=== PATIENT | female | born 1985 | race Caucasian/White ===

== ENCOUNTER 2016-07-17 16:02 | Outpatient (CLI) | payer OTHER ==
[2016-07-17 16:35] VITALS: BMI 36.7
[2016-07-17 17:35] LABS: HEMATOCRIT 32.7 % (37.0-47.0); HEMOGLOBIN 10.9 gm/l (12.0-16.0); MEAN CORPUSCULAR HEMOGLOBIN 27.7 pg (27.0-31.0); MEAN CORPUSCULAR HGB CONC 33.3 g/dl (33.0-37.0); RED CELL DISTRIBUTION WIDTH 12.6 % (11.5-14.5)
[2016-07-17 17:45] LABS: SPECIFIC GRAVITY 1.025 (1.001-1.030); URINE APPEARANCE CLEAR; URINE BILIRUBIN NEGATIVE (NEGATIVE); URINE BLOOD NEGATIVE (NEGATIVE); URINE COLOR AMBER; URINE GLUCOSE (UA) NEGATIVE (NEGATIVE); URINE LEUKOCYTE ESTERASE NEGATIVE (NEGATIVE); URINE NITRITE NEGATIVE (NEGATIVE); URINE PROTEIN TRACE (NEGATIVE); URINE UROBILINOGEN NORMAL (0-1 mg/dl)
[2016-07-17 17:54] LABS: ALB/GLOB RATIO 1.2 (>1.0); ALBUMIN 3.4 gm/dL (3.5-5.7); CALCIUM 8.8 mg/dL (8.6-10.3)
--- NOTE | 2016-07-17 19:55 | PCMOBT ---
OB Triage - Subjective SAMY KOWALSKI is a 31 year old at 34 who presents to L & D triage c/ o right sided abd pain at the level of the umbilicus last night and the night before. Each time it lasted about 1 hour, severe and not relieved by position change. It resolved on its own. No nausea/emesis, no fever/chills. Pt also has been having a burning RUQ pain radiating to RU back for the past few weeks. It is not clear if this related to or triggered by eating. No real pattern. Eval: Prolonged NST reactive, category 1, with no contractions. Abd soft, +BS, no guarding, no rebound. Pt is not having tenderness at all right now. UA normal CBC mild anemia, normal WBC CMP normal, slightly low protein - Physical Exam General: NAD Neurological: Alert, Oriented X4 Respiratory: Clear to Auscultation Cardiac: Regular Rate Abdomen: Soft, Non Tender, Gravid Contractions: Absent - Pelvic Exam External Genitalia: Other (Pelvic exam not indicated.) - Heart Tones Baseline: 140 (category 1) Variability: Moderate Accelerations: Present Decelerations: Non-Present - Assessment/ Plan 31 year old G2 P at 34 here for abd pain last night. Eval today normal and reassuring. Appendicitis and acute cholecystitis ruled out. Pt may have symptomatic gallstones. She will keep appt with Dr Berrios on Mon and discuss further work up if indicated. Return precautions given: including that she should return if she has decreased movement, if she has LOF, vaginal bleeding or contractions such that she thinks she's in labor.
== END 2016-07-17 19:35 | disposition home or self-care (01) ==
LOC: FBCOUT 16:02 → FBC 16:05 → FBCOUT 19:35
PROVIDERS: ATTEND Obstetrics & Gynecology
DX: O26.893 Other specified pregnancy related conditions, third trimester (principal); R10.9 Unspecified abdominal pain; O99.013 Anemia complicating pregnancy, third trimester; Z3A.34 34 weeks gestation of pregnancy
CPT/HCPCS: 82150; 85027; 80053; 81003; 36415; 59025; G0463

== ENCOUNTER 2016-08-13 04:55 | Inpatient (IN) | payer OTHER ==
[2016-08-13 05:19] VITALS: BMI 36.0
[2016-08-13 06:12] LABS: ABSOLUTE NEUTROPHIL COUNT 6.9 K/mm3 (1.8-7.7); BASO % 0.1 % (0.2-1.0); EOS # 0.1 (0.0-0.5); EOS % 0.5 % (0.9-2.9); HEMATOCRIT 32.8 % (37.0-47.0); HEMOGLOBIN 10.5 gm/l (12.0-16.0); IMM NEUT% 0.3 % (0-1); LYMPH # 1.6 (1.0-4.8); LYMPH % 16.9 % (15-45); MEAN CELL VOLUME 82.2 fl (81.0-99.0); MEAN CORPUSCULAR HEMOGLOBIN 26.3 pg (27.0-31.0); MEAN PLATELET VOLUME 10.9 fl (7.4-10.4); MONO # 0.7 (0.0-0.8); MONO % 7.3 % (4-12); NEUT % 74.9 % (43-75); PLATELET COUNT 160 K/mm3 (130-400); RED CELL DISTRIBUTION WIDTH 13.5 % (11.5-14.5)
[2016-08-13 06:14] LABS: SPECIFIC GRAVITY 1.015 (1.001-1.030); URINE BILIRUBIN NEGATIVE (NEGATIVE); URINE BLOOD NEGATIVE (NEGATIVE); URINE GLUCOSE (UA) NEGATIVE (NEGATIVE); URINE LEUKOCYTE ESTERASE NEGATIVE (NEGATIVE); URINE NITRITE NEGATIVE (NEGATIVE); URINE PROTEIN NEGATIVE (NEGATIVE); URINE UROBILINOGEN NORMAL (0-1 mg/dl)
[2016-08-13 06:15] LABS: URINE APPEARANCE SL CLOUDY; URINE COLOR DARK YELLOW
[2016-08-13 06:21] LABS: URINE BACTERIA 2+
[2016-08-13 06:26] LABS: CREATININE,RANDOM URINE 98 mg/dL
[2016-08-13 06:37] LABS: ALBUMIN 3.1 gm/dL (3.5-5.7); URIC ACID 5.7 mg/dL (2.3-7.6)
[2016-08-13] MEDS ORDERED: CEFAZOLIN SODIUM 1 GRAM PREMIX 50 ML IV ONE ×3 (07:58→23:48)
[2016-08-13] MEDS: CEFAZOLIN SODIUM 1 GRAM PREMIX 1 G in Premix (D5W) 50 ml 1 EACH IV SCH ×2 (08:06→16:06)
[2016-08-13] MEDS: LACTATED RINGERS 1,000 ML IV SCH ×2 (08:12→16:37)
[2016-08-13] MEDS: OXYCODONE/ACETAMINOPHEN 5/325 MG TABLET PO PRN ×4 (08:52→21:20)
[2016-08-13] MEDS: GUAIFENESIN-DEXTROMETHORPHAN 100/10 MG/5 ML (120 ML BOT) PO PRN ×3 (08:52→17:09)
--- NOTE | 2016-08-13 10:31 | PCMAN ---
OB Admission Note - History : 2 Term: 1 : 0 Abortions (S&E): 0 Livin Gestational Age (weeks): 38 Days (#/7): 5 Admit Cervical Dilation:: closed Admit Cervical Effacement (%):: 50 Admit Station:: -2 Admit Presentaton:: cephalic, well applied Membrane Status: Intact Contractions: Yes Contraction Frequency:: irregular mild, not in labor Heart Rate:: 135 (moderate variability) Status:: good EFW:: 8-9 lbs Summary of Course:: Geovanna has been followed since 7 wks gestation with an uncomplicated course in this . Nausea & emesis in first trimester; this mostly went away but has gotten a bit worse in past week. She developped RUQ and right back pain about 1 month ago. This back pain under her ribs on the right became acutely worse last night. Pt was home alone with at work; she was brought in by the rescue squad; it took 3 of them to help her out of bed because the pain was so excruciating. Pain is worst when lying on that side, or on back, or sitting; better when standing. Not aggravated by movement of legs. Not related to eating. No dysuria. No fever/chills, but shaking when on the way to hospital. Baby is active. Mild contrx, irregular. No vag bleeding. - Labs Blood Type: A (+) positive Hct/Hgb:: Hct 32.8% Rubella Status: Immune GBS Status: Negative Abnormal Labs: None Other Labs:: thrombophilia panel unremarkable, despite sister with h/o blood clotting disorder. - Review of Systems Pt denies any new or strenuous activity. She has a strong back related to caring for her 7yo disabled son "Blayne" who in Apr 2015. No h/o back issues then. - Physical Exam Psych/Mental Status: Mood/Affect Appropriate Neurological: Alert, Oriented x 4, Normal Speech Lungs: Clear to Auscultation Bilaterally, Normal Air Movement (Good inspiratory excursion; pain aggravated by a deep breath. No rub/no rales/no rhonchi. Mild CVAT on right.) Cardiovascular: Regular Rate and Rhythm Abdomen: Normal Bowel Sounds Genitourinary: Normal Female Genitalia Skin: Normal Color, Warm, Dry - Problems (1) Back pain affecting Status: Acute Code: O26.899Assessment/Plan: This may be musculo-skeletal, possibly even involving a pinched nerve. (2) Pyelonephritis affecting Status: Acute Code: O23.00Assessment/Plan: Bacteriuria with some CVAT but not convincing for pyelonephritis. We will hydrate her by IV and treat presumptively with IV ancef. (3) Hypertension affecting , antepartum, third trimester Status: Acute Code: O16.3Assessment/Plan: Labile BP not requiring meds as yet. - Additional Comments Pt will be observed overnight with IV hydration, IV ancef, PO meds for her URI sx, and monitoring. Etiology of this acute disabling back pain is as yet unclear.
[2016-08-13] MEDS: ASCORBIC ACID 500 MG TABLET PO SCH (20:26)
[2016-08-13] MEDS: OXYCODONE HCL 5 MG TABLET PO PRN (20:26)
[2016-08-13] MEDS: CODEINE/PROMETHAZINE 6.25mg/10mg/5ml SYRUP DOSE PO PRN (20:31)
--- NOTE | 2016-08-13 20:46 | PDOC36 ---
Provider Note Subject: Change of plan Note: S: Geovanna is still very uncomfortable as soon as the percocet is wearing off. She is requesting delivery of this baby because she believes that will help her pain. She is at 38w5d today based on an early 7wk US which confirmed her EDC of 08/22. We discussed the problem of respiratory immaturity, darnell in boys. We discussed why elective c/s are scheduled at 39+ weeks. O: VS reviewed. BP's improved. Afebrile FH reactive with no significant contrx Pain is sharp, still in exactly the same location with no radiation. Right flank. Imp: Etiology of pain is unclear. Pt is not much improved despite IV fluids and antibiotics. Plan: Options were discussed. Pt was discussed with Dr Berrios. We will try to manage her symptoms as well as we can but it is reasonable to move up her cs date to 08/15 when she is 39 wks. In the meantime hopefully her cold/cough will improve, and we should get results from her urine culture. We will continue IV antibiotics. We will monitor this baby and VS and pain. Pt agrees with this plan.
[2016-08-14] MEDS: CEFAZOLIN SODIUM 1 GRAM PREMIX 1 G in Premix (D5W) 50 ml 1 EACH IV SCH (00:03)
[2016-08-14] MEDS: OXYCODONE HCL 5 MG TABLET PO PRN (00:22)
[2016-08-14] MEDS: CODEINE/PROMETHAZINE 6.25mg/10mg/5ml SYRUP DOSE PO PRN (00:28)
[2016-08-14] MEDS: OXYCODONE/ACETAMINOPHEN 5/325 MG TABLET PO PRN ×4 (06:39→20:17)
[2016-08-14] MEDS: GUAIFENESIN-DEXTROMETHORPHAN 100/10 MG/5 ML (120 ML BOT) PO PRN ×3 (06:40→20:18)
--- NOTE | 2016-08-14 09:46 | PDOC36 ---
Provider Note Subject: Pain of uncertain origin Note: Geovanna did get some sleep, prob due to the phenergan with codeine cough syrup. Her cold is improving. Her pain continues the same but is a bit more controlled with current oxycodone management. It remains localized in right flank but is covering a broader area now. Pt also noted a popping sensation during the night, like something was shifting. It scared her. Baby is active. Mild irreg contrx. It was explained that urine culture came back showing no growth. We will dc ancef. Exam: VS stable, afebrile NST reactive with occ variable decels but no worrisome pattern. Pt appears relaxed right now after 2 percocet this morning. Pain with movement or exertion; pain on palpation over right flank. Abd, soft, +BS but uterus feels toned up and firm. No pelvic exam indicated. Imp: Etiology of this pt's unusual but real pain is still unclear. We can rule out pyelonephritis, so antibiotics were dc'd. Nephrolithiasis is a possibility tho unlikely since she had no hematuria. Placental abruption is a possibility but no specific clinical indicators as yet. The most likely is that this is musculo-skeletal in origin. Plan: Pt will remain here under observation with regular monitoring. She seems to do better with IV hydration so this will be given today and overnight when she is NPO. If nothing changes we will proceed with her primary c/section tomorrow.
[2016-08-14] MEDS: ASCORBIC ACID 500 MG TABLET PO SCH ×2 (10:43→20:18)
[2016-08-14] MEDS ORDERED: LACTATED RINGERS 1,000 ML IV SCH (13:00)
[2016-08-14] MEDS ORDERED: IV START KIT ONE (17:07)
[2016-08-14] MEDS ORDERED: CEFAZOLIN SODIUM 2 GRAM DUPLEX 2 G in Premix (D5W) 50 ml 1 EACH IV PRN (19:38)
--- NOTE | 2016-08-14 19:56 | PDOC36 ---
Provider Note Subject: Pre-op note Note: Geovanna has been in pain off and on, also experiencing some sharp discomfort in the pelvis at times. But main complaint is the right flank pain, persistent, somewhat controlled by percocet and hydration. She has also been emotional and more apprehensive as well. We reviewed the steps of the c/section for tomorrow. Her questions were answered. O: VS stable. Monitoring at approx 1pm was reactive, reassuring. Actve baby. No significant contractions. No exam indicated. Imp: Stable, not worsening nor improving. New IV access placed today. Plan is to proceed with primary c/section tomorrow; Dr Berrios will be the surgeon. Labs will be drawn in am. NPO after midnight.
[2016-08-15] MEDS: CODEINE/PROMETHAZINE 6.25mg/10mg/5ml SYRUP DOSE PO PRN (00:09)
[2016-08-15] MEDS: OXYCODONE/ACETAMINOPHEN 5/325 MG TABLET PO PRN ×2 (02:55→08:20)
[2016-08-15 06:58] LABS: HEMATOCRIT 30.5 % (37.0-47.0); HEMOGLOBIN 9.5 gm/l (12.0-16.0); MEAN CELL VOLUME 82.9 fl (81.0-99.0); MEAN CORPUSCULAR HEMOGLOBIN 25.8 pg (27.0-31.0); MEAN CORPUSCULAR HGB CONC 31.1 g/dl (33.0-37.0); RED CELL DISTRIBUTION WIDTH 13.7 % (11.5-14.5)
--- NOTE | 2016-08-15 11:54 | PDOC36 ---
Provider Note Subject: Antepartum note Note: Pt was admitted on Monday with right sided flank pain. Pt was admitted for presumptive pyelonephritis with IV antibiotics. Pt is scheduled for a primary c /section on Monday due to h/o traumatic vaginal delivery previous . Pt had requested the c/section be moved up to this admission and she is 39w today. Feels better but pain is still present; requested one more dose of percocet this morning. Pt has been counseled re: c/section, indication and risks including bleeding, infection, injury to bowel,bladder. Postop expectations have been reviewed. NPO except for meds
[2016-08-15] MEDS: LACTATED RINGERS 1,000 ML IV SCH ×3 (13:13→20:24)
[2016-08-15] MEDS ORDERED: OXYTOCIN 10 UNITS/ML VIAL ONE (16:19)
[2016-08-15] MEDS ORDERED: ONDANSETRON 4 MG/2ML 2 ML VIAL ONE ×2 (16:19→20:42)
[2016-08-15] MEDS ORDERED: SPINAL PROCEDURAL TRAY 1 EACH ONE (16:19)
[2016-08-15] MEDS ORDERED: MORPHINE SULFATE (DURAMORPH) 1 MG/ML 10ML AMP ONE (16:19)
[2016-08-15] MEDS ORDERED: HYDROMORPHONE HCL 1 MG/ML SYRINGE IV PRN (17:45)
[2016-08-15] MEDS ORDERED: MORPHINE SULFATE 2 MG/ML SYRINGE IV PRN (17:45)
[2016-08-15] MEDS ORDERED: NALOXONE HCL 0.4 MG/ML VIAL IV PRN (17:45)
[2016-08-15] MEDS ORDERED: HYDROMORPHONE HCL 2 MG/ML SYRINGE IV PRN (17:45)
[2016-08-15] MEDS ORDERED: PROMETHAZINE HCL 25 MG/ML VIAL IM PRN (17:45)
[2016-08-15] MEDS ORDERED: NALBUPHINE HCL 20 MG/ML AMP IV PRN (17:45)
[2016-08-15] MEDS ORDERED: ONDANSETRON 4 MG/2ML 2 ML VIAL IV PRN (17:45)
[2016-08-15] MEDS ORDERED: EPHEDRINE SULFATE 50 MG/ML 1ML VIAL IV PRN (17:45)
[2016-08-15] MEDS ORDERED: DIPHENHYDRAMINE HCL 50 MG/1 ML VIAL IV PRN ×2 (17:45→19:09)
[2016-08-15] MEDS ORDERED: MORPHINE SULFATE 4 MG/ML SYRINGE IV PRN (17:45)
[2016-08-15] MEDS ORDERED: ROPIVACAINE PF SCH (17:45)
[2016-08-15] MEDS ORDERED: MORPHINE SULFATE 10 MG/ML SYRINGE IV PRN (17:45)
[2016-08-15] MEDS ORDERED: ON Q PUMP PF SCH (17:45)
[2016-08-15] MEDS ORDERED: CEFAZOLIN SODIUM 2 GRAM DUPLEX 50 ML IV ONE (17:55)
[2016-08-15] MEDS ORDERED: ESMOLOL HCL 10 MG/ML 10ML VIAL IV ONE (18:07)
[2016-08-15] MEDS ORDERED: KETOROLAC TROMETHAMINE 30 MG/ML 1 ML VIAL IV PRN (19:09)
[2016-08-15] MEDS ORDERED: DIPHENHYDRAMINE HCL 25 MG CAPSULE PO PRN (19:09)
[2016-08-15] MEDS ORDERED: LANOLIN 50 APPLIC/7G TUBE TP PRN (19:09)
[2016-08-15] MEDS ORDERED: HYDROMORPHONE HCL 1 MG/ML SYRINGE ONE (20:20)
[2016-08-15] MEDS: ASCORBIC ACID 500 MG TABLET PO SCH (20:52)
[2016-08-15] MEDS: KETOROLAC TROMETHAMINE 30 MG/ML 1 ML VIAL IV SCH (20:56)
[2016-08-15] MEDS: DOCUSATE SODIUM 100 MG CAPSULE PO SCH (21:34)
[2016-08-15] MEDS ORDERED: BLISTEX LIPSTICK 1 EACH TP ONE (23:38)
[2016-08-16] MEDS: LACTATED RINGERS 1,000 ML IV SCH ×2 (02:13→19:21)
[2016-08-16] MEDS: KETOROLAC TROMETHAMINE 30 MG/ML 1 ML VIAL IV SCH ×2 (02:32→19:22)
--- NOTE | 2016-08-16 08:06 | OP ---
Geovanna Waller [id number] DATE OF PROCEDURE: 08/15/2016 PREOPERATIVE DIAGNOSES: 1. Term at 39 weeks of gestation. 2. Desires elective primary section secondary to history of traumatic delivery. POSTOPERATIVE DIAGNOSES: 1. Term at 39 weeks of gestation. 2. Desires elective primary section secondary to history of traumatic delivery. PROCEDURE: Primary low transverse section. SURGEON: Ishaan Berrios M.D. LEGAL OFFICER: Jonny Ding CNM ANESTHESIA: Spinal. ESTIMATED BLOOD LOSS: 600 mL. COMPLICATIONS: None. OPERATIVE FINDINGS: Include a live born baby male with scores of 9 and 9 and delivery weight of 9 pounds 6 ounces. OPERATIVE COURSE: The patient was taken to the operating room and placed under spinal anesthesia. The patient was then prepped and draped in the usual sterile fashion. Adequate anesthesia was confirmed and pfannenstiel incision was made and taken down to the level of the fascia. The fascia was incised transversely and dissected bilaterally off of the underlying rectus muscle. The muscle was in the midline bluntly and the peritoneal cavity was entered with Metzenbaum scissors and stretched. An Timmy retractor was then placed and a transverse incision was made on the lower uterine segment and stretched bilaterally. Baby was then delivered with aid of a blade of the Hernandez forceps. Bulb suction was then applied and the shoulders were then delivered. After a brief delay the cord was clamped and cut and baby was taken to the warmer for the nursing staff. Placenta was then extracted manually. The uterus was cleared of all clots and membranes. The uterine incision was then closed with 0 Vicryl in a continuous fashion and a second layer of 0 Vicryl was used to imbricate the incision. There was good hemostasis observed. The peritoneum was then reapproximated with 3-0 Vicryl and the rectus muscles were also reapproximated with interrupted 3-0 Vicryl suture. The fascia was then closed with 0 Vicryl in a continuous fashion and subcutaneous space was then reapproximated with Chromic suture and the skin was then sutured with 3-0 Monocryl. The patient was then recovered from anesthesia and taken to the recovery room in stable condition. JOB: [id number]
--- NOTE | 2016-08-16 08:33 | PDOC44 ---
- Subjective Day: 1 Feels well. Continues to complain of cough which causes pain at her incision. Trying to breastfeed. Reports Flatus, Reports Pain Tolerable, Reports , Reports Tolerating Regular Diet - Objective Temp Pulse Resp BP Pulse Ox 97.3 F 79 16 113/66 99 08/16/16 05:50 08/16/16 05:50 08/16/16 05:50 08/16/16 05:50 08/15/16 22:00 Lab Results 08/16/16 06:10 Hgb 9.0 L Hct 28.0 L Current Medications Generic Name Dose Route Start Last Admin Trade Name Freq PRN Reason Stop Dose Admin Diphenhydramine HCl 25 - 50 mg 08/15/16 19:09 Benadryl PO Q6H PRN Itching (Mild/Moderate) Diphenhydramine HCl 25 - 50 mg 08/15/16 19:09 Benadryl IV Q6H PRN Itching (Severe) Diphenhydramine HCl 25 - 50 mg 08/15/16 17:45 08/16/16 00:21 Benadryl IV 08/16/16 17:45 25 mg Q4H PRN Administration Itching Docusate Sodium 100 mg 08/15/16 21:00 08/15/16 21:34 Colace PO Not Given BID AMARILYS Emollient Ointment 1 applic 08/15/16 19:09 08/15/16 20:23 [id number] TP 1 applic PRN PRN Administration sore nipples Ephedrine Sulfate 5 - 10 mg 08/15/16 17:45 Ephedrine Sulfate IV 08/16/16 17:45 Q5M PRN Hydromorphone HCl 0.5 - 2 mg 08/15/16 17:45 08/15/16 20:30 Dilaudid IV 08/16/16 17:45 1 mg Q1H PRN Administration Pain (Breakthrough) Hydromorphone HCl 0.5 - 2 mg 08/15/16 17:45 Dilaudid IV 08/16/16 17:45 Q1H PRN Pain Lactated Ringer's 1,000 mls @ 125 mls/hr 08/15/16 19:09 08/16/16 02:13 Lactated Ringers IV 125 mls/hr .Q8H AMARILYS Administration Ibuprofen 800 mg 08/15/16 19:09 Motrin PO Q8H PRN Pain Ketorolac Tromethamine 30 mg 08/15/16 19:09 08/15/16 20:24 Toradol IV 30 mg Q6H PRN Administration Pain (Mild/Moderate) Ketorolac Tromethamine 30 mg 08/15/16 17:45 08/16/16 02:32 Toradol IV 08/16/16 17:45 30 mg Q6H AMARILYS Administration Morphine Sulfate 1 - 5 mg 08/15/16 17:45 Morphine Sulfate IV 08/16/16 17:45 Q1H PRN Pain (Breakthrough) Morphine Sulfate 1 - 5 mg 08/15/16 17:45 Morphine Sulfate IV 08/16/16 17:45 Q1H PRN Pain (Breakthrough) Morphine Sulfate 1 - 5 mg 08/15/16 17:45 Morphine Sulfate IV 08/16/16 17:45 Q1H PRN Pain (Breakthrough) Multivi/Iron Carb/Fe Sulf/FA/Prenat 1 tab 08/16/16 09:00 Plus PO DAILY AMARILYS Nalbuphine HCl 1 - 5 mg 08/15/16 17:45 Nubain IV 08/16/16 17:45 Q4H PRN Itching Naloxone HCl 0.2 - 0.4 mg 08/15/16 17:45 Narcan IV 08/16/16 17:45 Q5M PRN Ondansetron HCl 4 mg 08/15/16 17:45 08/15/16 20:48 Zofran IV 08/16/16 17:45 4 mg Q6H PRN Administration Nausea/Vomiting Oxycodone/Acetaminophen 1 - 2 tab 08/15/16 19:09 Percocet 5/325 PO Q4H PRN Pain (Moderate) Promethazine HCl 6.25 - 12.5 mg 08/15/16 17:45 08/15/16 23:05 Phenergan IM 08/16/16 17:45 12.5 mg Q4H PRN Administration Nausea/Vomiting Sodium Chloride 10 ml 08/15/16 19:09 Normal Saline 10ml Flush IV PRN PRN IV Flush Sodium Chloride 10 ml 08/16/16 01:00 08/16/16 02:34 Normal Saline 10ml Flush IV Not Given Q8HR AMARILYS - Physical Exam General: Afebrile Psych/Mental Status: Mood/Affect Appropriate, Judgment/Insight Intact, Bonding Well Neurological: Grossly Intact, Alert, Oriented x 4, Normal Speech HEENT: Atraumatic, PERRLA, EOMI, Mucous membr. moist/pink Lungs: Clear to Auscultation Bilaterally, Normal Air Movement Cardiovascular: Regular Rate and Rhythm, Normal S1, Normal S2 Fundus: Firm, Midline, At Umbilicus Abdomen: Normal Bowel Sounds Extremities: Full ROM Skin: Normal Color, Warm, Dry, Intact Wound SPRAY PILOT: Dressing in Place, Dressing Clean/Dry/Intact - Problems:Assessment/Plan (1) deliv due to previous difficult deliv, deliv, curr hospitaliz Status: AcuteAssessment/Plan: Continue postoperative care. Robitussin for cough. Encourage . Disposition: Anticipate DC Home Tomorrow
[2016-08-16] MEDS: PRENATAL VIT/FE FUMARATE/FA 1 TABLET PO SCH (09:21)
[2016-08-16] MEDS: DOCUSATE SODIUM 100 MG CAPSULE PO SCH ×2 (09:22→20:20)
[2016-08-16] MEDS: IBUPROFEN 800 MG TABLET PO PRN ×2 (09:22→17:06)
[2016-08-16] MEDS: GUAIFENESIN-DEXTROMETHORPHAN 100/10 MG/5 ML (120 ML BOT) PO PRN (11:29)
[2016-08-16] MEDS: OXYCODONE/ACETAMINOPHEN 5/325 MG TABLET PO PRN ×3 (13:47→22:50)
[2016-08-17] MEDS: IBUPROFEN 800 MG TABLET PO PRN ×3 (02:44→19:47)
[2016-08-17] MEDS: OXYCODONE/ACETAMINOPHEN 5/325 MG TABLET PO PRN ×5 (02:44→19:47)
[2016-08-17] MEDS: GUAIFENESIN-DEXTROMETHORPHAN 100/10 MG/5 ML (120 ML BOT) PO PRN (02:45)
--- NOTE | 2016-08-17 09:22 | PDOC44 ---
- Subjective Day: 2 (Post-op primary c/section.) Reports Flatus, Reports Pain Tolerable, Reports (Worried about breast feeding. Pt is requesting an electric breast pump for home.), Reports Lochia Light - Objective Temp Pulse Resp BP Pulse Ox 98.1 F 97 18 136/80 99 08/17/16 08:48 08/17/16 08:48 08/17/16 08:48 08/17/16 08:48 08/17/16 02:40 Current Medications Generic Name Dose Route Start Last Admin Trade Name Freq PRN Reason Stop Dose Admin Diphenhydramine HCl 25 - 50 mg 08/15/16 19:09 Benadryl PO Q6H PRN Itching (Mild/Moderate) Docusate Sodium 100 mg 08/15/16 21:00 08/16/16 20:20 Colace PO 100 mg BID AMARILYS Administration Emollient Ointment 1 applic 08/15/16 19:09 08/15/16 20:23 [id number] TP 1 applic PRN PRN Administration sore nipples Guaifenesin/Dextromethorphan 5 ml 08/16/16 08:29 08/17/16 02:45 Robitussin Dm Syrup PO 5 ml QID PRN Administration Cough Ibuprofen 800 mg 08/15/16 19:09 08/17/16 02:44 Motrin PO 800 mg Q8H PRN Administration Pain Multivi/Iron Carb/Fe Sulf/FA/Prenat 1 tab 08/16/16 09:00 08/16/16 09:21 Plus PO 1 tab DAILY AMARILYS Administration Oxycodone/Acetaminophen 1 - 2 tab 08/15/16 19:09 08/17/16 07:05 Percocet 5/325 PO 2 tab Q4H PRN Administration Pain (Moderate) - Physical Exam General: Afebrile Psych/Mental Status: Mood/Affect Appropriate, Judgment/Insight Intact, Bonding Well Neurological: Alert, Normal Gait, Normal Speech Lungs: Clear to Auscultation Bilaterally Cardiovascular: Regular Rate and Rhythm Fundus: Firm, Below Umbilicus Abdomen: Normal Bowel Sounds Lochia: Light Skin: Normal Color, Warm, Dry Wound FIRE CONTROL ASSISTANT: Dressing in Place, Well Approximated - Problems:Assessment/Plan (1) Back pain affecting Status: ResolvedAssessment/Plan: This may be musculo-skeletal, possibly even involving a pinched nerve. Pain resolved immediately post . (2) Pyelonephritis affecting Status: ResolvedAssessment/Plan: Bacteriuria with some CVAT but not convincing for pyelonephritis. We will hydrate her by IV and treat presumptively with IV ancef. Urine showed no growth. IV antibiotics discontinued. (3) Hypertension affecting , antepartum, third trimester Status: ResolvedAssessment/Plan: Labile BP not requiring meds as yet. (4) deliv due to previous difficult deliv, deliv, curr hospitaliz Status: AcuteAssessment/Plan: Continue postoperative care. Robitussin for cough. Encourage . Disposition: Anticipate DC Home Tomorrow (Pt given prescription for breast pump. )
[2016-08-17] MEDS: DOCUSATE SODIUM 100 MG CAPSULE PO SCH ×3 (11:56→22:06)
[2016-08-17] MEDS: PRENATAL VIT/FE FUMARATE/FA 1 TABLET PO SCH (11:56)
[2016-08-18] MEDS: OXYCODONE/ACETAMINOPHEN 5/325 MG TABLET PO PRN ×4 (00:12→17:53)
[2016-08-18] MEDS: IBUPROFEN 800 MG TABLET PO PRN ×2 (04:02→12:00)
--- NOTE | 2016-08-18 07:39 | PDOC39B ---
Hospital Course: ADMIT DATE: 08/13/16 DISCHARGE DATE: 08/18/16 ADMISSION DIAGNOSES: 08/13/16 PROCEDURES: antibiotic therapy, primary lower segment cesarian section HISTORY OF PRESENT ILLNESS: 31 year old G2 T1 L0 at 39 weeks 0 days presenting with symptoms of pylenephritis (back pain), history of elevated blood pressure antepartum, requesting primary cesarian section for history of previous tramatic . HOSPITAL COURSE: The patient was treated with antibiotics for pylonephritis, post op cesarian section uneventful. By day of discharge the patient is ambulating, eating, voiding, and passing flatus without difficulty. Pain is controlled and lochia is appropriate. She is [] - Physical Exam Vital Signs: Temp Pulse Resp BP Pulse Ox 98.0 F 89 18 121/73 99 08/18/16 01:43 08/18/16 01:43 08/18/16 01:43 08/18/16 01:43 08/17/16 02:40 General: Afebrile, No Acute Distress Psych/Mental Status: Mood/Affect Appropriate, Judgment/Insight Intact, Bonding Well Lungs: Clear to Auscultation Bilaterally, Normal Air Movement Breast: Soft, Skin intact, Nipples Intact, No Tenderness, No Erythema Fundus: Firm, Midline, Below Umbilicus, Other (nontender) Abdomen: Normal Bowel Sounds, Other (passed flatus, no bowel movement yet), No Tenderness, No Distention Genitourinary: Other (voiding without difficulty) Lochia: Light Extremities: No Tenderness Wound: Dressing in Place, Dressing Clean/Dry/Intact, Well Approximated, Other ( suture line intact), No Drainage, No Erythema - Discharge Diagnosis (1) Anemia, Status: Acute - Discharge Plan Condition: Stable Disposition: Home Additional Instructions: nothing in vagina x 6 weeks, office visit one week for incision check. may drive a car in one week. Prescriptions: Ibuprofen [Motrin] 800 mg PO Q8H PRN #30 tablet PRN Reason: Pain FERROUS SULFATE (65 Fe) [IRON FERROUS SULFATE 325 MG TABLET (SHF)] 325 mg PO DAILY #30 tab Oxycodone HCl/Acetaminophen [PERCOCET 5/325 MG TABLET (SHF)] 1 - 2 tab PO Q4H PRN #14 tablet PRN Reason: Pain (Moderate) Sennosides [SENOKOT 8.6 MG TABLET (SHF)] 1 tab PO BEDTIME #10 tab
[2016-08-18] MEDS: DOCUSATE SODIUM 100 MG CAPSULE PO SCH (12:10)
[2016-08-18] MEDS: PRENATAL VIT/FE FUMARATE/FA 1 TABLET PO SCH (12:10)
[2016-08-18 14:49] VITALS: BP 134/88
== END 2016-08-18 18:17 | disposition home or self-care (01) | DRG 765 ==
LOC: FBCOUT 04:55 → FBC 05:03 → FBCOUT 07:03 → OBSVTOIN 20:00
PROVIDERS: ADMIT Obstetrics & Gynecology; ATTEND Obstetrics & Gynecology
PROC: 10D00Z1 Extraction of Products of Conception, Low, Open Approach (ICD-10-PCS; principal; 2016-08-15)
DX: O75.3 Other infection during labor (principal); N12 Tubulo-interstitial nephritis, not specified as acute or chronic; B96.89 Other specified bacterial agents as the cause of diseases classified elsewhere; O16.4 Unspecified maternal hypertension, complicating childbirth; Z37.0 Single live birth; Z3A.39 39 weeks gestation of pregnancy

== ENCOUNTER 2016-10-06 13:04 | Outpatient (CLI) | payer OTHER | END 2016-10-06 13:05 | disposition home or self-care (01) | LOC: BABIESSH 13:04 | PROVIDERS: ATTEND Family Medicine | DX: Z39.1 Encounter for care and examination of lactating mother (principal) ==